=== PATIENT | male | born 1955 | race Caucasian/White ===

== ENCOUNTER 2019-05-04 10:48 | Outpatient (REF) | payer MEDICARE, SELFPAY ==
[2019-05-04 17:05] LABS: Hemoglobin A1C 6.6 % (3.8-5.6)
[2019-05-04 17:26] LABS: BUN 13 mg/dL (7-18); CREATININE 1.19 mg/dL (0.70-1.30); Calcium 8.7 mg/dL (8.5-10.1); Calculated LDL 66 mg/dL; Chloride 90 mmol/L (98-107); Cholesterol 152 mg/dL (<200); Glucose 164 mg/dL (74-106); HDL Cholesterol 79 mg/dL (40-60); Potassium 5.7 mmol/L (3.5-5.1); Sodium 125 mmol/L (136-145); Triglyceride 35 mg/dL (<150)
== END 2019-05-04 11:08 ==
LOC: NCHCN 10:48
PROVIDERS: Visit Provider Family Medicine
DX: E11.9 Type 2 diabetes mellitus without complications (principal); I10 Essential (primary) hypertension; Z13.6 Encounter for screening for cardiovascular disorders
CPT/HCPCS: 80048; 80061; 83036

== ENCOUNTER 2019-05-14 09:22 | Outpatient (REF) | payer MEDICARE, SELFPAY ==
[2019-05-14 21:20] LABS: Anion Gap 10.6 mmol/L (3-11); BUN 10 mg/dL (7-18); CO2 25.4 mmol/L (21.0-32.0); CREATININE 1.06 mg/dL (0.70-1.30); Calcium 8.6 mg/dL (8.5-10.1); Chloride 90 mmol/L (98-107); Glucose 140 mg/dL (74-106); Potassium 4.8 mmol/L (3.5-5.1); Sodium 126 mmol/L (136-145)
[2019-05-14 21:40] LABS: COMMENT (LAB VIEW ONLY) < 13.00 mg/dL
== END 2019-05-14 09:42 ==
LOC: NCHCN 09:22
PROVIDERS: Visit Provider Family Medicine
DX: E11.9 Type 2 diabetes mellitus without complications (principal); I10 Essential (primary) hypertension; Z13.220 Encounter for screening for lipoid disorders; E66.9 Obesity, unspecified
CPT/HCPCS: 80048; 82043; 82570

== ENCOUNTER 2019-05-25 12:12 | Outpatient (REF) | payer MEDICARE, SELFPAY ==
[2019-05-25 22:09] LABS: Anion Gap 10.5 mmol/L (3-11); CO2 25.5 mmol/L (21.0-32.0); Chloride 97 mmol/L (98-107); Potassium 4.3 mmol/L (3.5-5.1); Sodium 133 mmol/L (136-145)
== END 2019-05-25 12:32 ==
LOC: NCHCN 12:12
PROVIDERS: Visit Provider Family Medicine
DX: E87.1 Hypo-osmolality and hyponatremia (principal)
CPT/HCPCS: 80051

== ENCOUNTER 2019-07-05 11:10 | Outpatient (REF) | payer MEDICARE, SELFPAY ==
[2019-07-05 22:21] LABS: ALT 38 U/L (16-63); AST 27 U/L (15-37); Albumin 3.1 g/dL (3.4-5.0); Alkaline Phosphatase 88 U/L (46-116); BUN 7 mg/dL (7-18); Bilirubin, Total 0.6 mg/dL (0.2-1.0); CREATININE 0.72 mg/dL (0.70-1.30); Calcium 7.6 mg/dL (8.5-10.1); Chloride 90 mmol/L (98-107); Glucose 106 mg/dL (74-106); Magnesium 1.2 mg/dL (1.8-2.4); Sodium 132 mmol/L (136-145)
[2019-07-05 22:35] LABS: Potassium 2.9 mmol/L (3.5-5.1)
== END 2019-07-05 11:30 ==
LOC: NCHCN 11:10
PROVIDERS: Visit Provider Nurse Practitioner Family
DX: E83.51 Hypocalcemia (principal); E83.42 Hypomagnesemia
CPT/HCPCS: 80053; 83735

== ENCOUNTER 2019-07-12 16:41 | Outpatient (REF) | payer MEDICARE, SELFPAY ==
[2019-07-12 22:09] LABS: Anion Gap 10.7 mmol/L (3-11); BUN 10 mg/dL (7-18); CO2 29.3 mmol/L (21.0-32.0); CREATININE 0.73 mg/dL (0.70-1.30); Chloride 99 mmol/L (98-107); Glucose 116 mg/dL (74-106); Magnesium 1.2 mg/dL (1.8-2.4); Potassium 3.4 mmol/L (3.5-5.1); Sodium 139 mmol/L (136-145)
== END 2019-07-12 17:01 ==
LOC: NCHCN 16:41
PROVIDERS: Visit Provider Family Medicine
DX: E83.42 Hypomagnesemia (principal); E83.51 Hypocalcemia; I10 Essential (primary) hypertension
CPT/HCPCS: 80048; 83735

== ENCOUNTER 2020-03-01 14:57 | Outpatient (REF) | payer MEDICARE, SELFPAY ==
[2020-03-01 22:19] LABS: HCT 40.9 % (40.0-50.0); HGB 13.7 g/dL (13.5-17.5)
[2020-03-01 22:43] LABS: Anion Gap 7.8 mmol/L (3-11); BUN 17 mg/dL (7-18); CO2 25.2 mmol/L (21.0-32.0); Calcium 9.4 mg/dL (8.5-10.1); Chloride 98 mmol/L (98-107); Ferritin 65 ng/mL (26-388); Glucose 119 mg/dL (74-106); Magnesium 1.5 mg/dL (1.8-2.4); Potassium 5.6 mmol/L (3.5-5.1); Sodium 131 mmol/L (136-145)
[2020-03-01 23:00] LABS: COMMENT (LAB VIEW ONLY) 66.83 mg/dL; Microalb ug/mg Crea 9.6 ug/mg Cr
== END 2020-03-01 15:17 ==
LOC: NCHCN 14:57
PROVIDERS: Visit Provider Family Medicine
DX: E11.9 Type 2 diabetes mellitus without complications (principal); I10 Essential (primary) hypertension; E83.42 Hypomagnesemia; E78.5 Hyperlipidemia, unspecified; D64.9 Anemia, unspecified
CPT/HCPCS: 80048; 82043; 82570; 82728; 83735; 85014; 85018

== ENCOUNTER 2020-03-15 19:43 | Outpatient (REF) | payer MEDICARE, SELFPAY ==
[2020-03-15 22:14] LABS: Anion Gap 8.9 mmol/L (3-11); BUN 14 mg/dL (7-18); CO2 26.1 mmol/L (21.0-32.0); CREATININE 1.09 mg/dL (0.70-1.30); Calcium 8.3 mg/dL (8.5-10.1); Chloride 96 mmol/L (98-107); Glucose 194 mg/dL (74-106); Potassium 4.6 mmol/L (3.5-5.1); Sodium 131 mmol/L (136-145)
== END 2020-03-15 20:03 ==
LOC: NCHCN 19:43
PROVIDERS: Visit Provider Family Medicine
DX: I10 Essential (primary) hypertension (principal)
CPT/HCPCS: 80048

== ENCOUNTER 2020-04-19 11:04 | Outpatient (REF) | payer MEDICARE, SELFPAY ==
[2020-04-19 22:21] LABS: Chloride 93 mmol/L (98-107); Potassium 4.6 mmol/L (3.5-5.1); Sodium 128 mmol/L (136-145)
== END 2020-04-19 11:24 ==
LOC: NCHCN 11:04
PROVIDERS: Visit Provider Family Medicine
DX: I10 Essential (primary) hypertension (principal); E87.1 Hypo-osmolality and hyponatremia; E83.51 Hypocalcemia; E83.42 Hypomagnesemia
CPT/HCPCS: 80051

== ENCOUNTER 2020-04-26 18:28 | Outpatient (REF) | payer MEDICARE, SELFPAY ==
[2020-04-26 21:56] LABS: Abs Immature Grans 0.09 10^3/uL (0.0-0.06); Absolute Basophil Count 0.04 10^3/uL (0.0-0.2); Absolute Eosinophil Count 0.13 10^3/uL (0.0-0.7); Absolute Lymphocyte Count 1.74 10^3/uL (1.2-3.4); Absolute Monocyte Count 0.65 10^3/uL (0.1-0.8); Absolute Neutrophil Count 5.69 10^3/uL (1.2-6.7); Basophils % 0.5; Eosinophils % 1.6; HCT 39.2 % (40.0-50.0); HGB 13.1 g/dL (13.5-17.5); Immature Grans % 1.1; Lymphocytes % 20.9; MCH 30.9 pg (27.0-33.0); MCHC 33.4 % (32.0-36.0); MCV 92.5 fL (80-95); MPV 8.9 fL (8.0-11.0); Monocytes % 7.8; Neutrophils % 68.1; Nucleated RBC 0 %; Platelet Count 203 10^3/uL (130-400); RBC 4.24 10^6/uL (4.36-5.78); RDW 11.8 % (11.8-14.1); RDW-SD 39.8 fL; WBC 8.34 10^3/uL (4.4-10.8)
[2020-04-28 14:58] LABS: Albumin 56.5 % (55.8-66.1); Total Protein 6.8 g/dL (6.3-8.2)
== END 2020-04-26 18:48 ==
LOC: NCHCN 18:28
PROVIDERS: Visit Provider Family Medicine
DX: E87.1 Hypo-osmolality and hyponatremia (principal)
CPT/HCPCS: 84165; 85025

== ENCOUNTER 2020-04-27 22:11 | Outpatient (REF) | payer MEDICARE, SELFPAY ==
[2020-04-28 18:08] LABS: Osmolality, Urine 502 mOsm/kg (150-1,150)
== END 2020-04-27 22:31 ==
LOC: NCHCN 22:11
PROVIDERS: Visit Provider Family Medicine
DX: E87.1 Hypo-osmolality and hyponatremia (principal)
CPT/HCPCS: 83935

== ENCOUNTER 2020-08-29 21:26 | Outpatient (REF) | payer MEDICARE, SELFPAY ==
[2020-08-29 22:06] LABS: TSH 1.21 uIU/mL (0.36-3.74); Vitamin B12 309 pg/mL (193-986)
[2020-08-31 09:48] LABS: Lyme Ab w Rflx to Lyme Confirm Negative (Negative)
[2020-08-31 12:52] LABS: Albumin 59.4 % (55.8-66.1); Total Protein 6.9 g/dL (6.3-8.2)
== END 2020-08-29 21:27 | disposition home or self-care (01) ==
LOC: NCHCN 21:26
PROVIDERS: Visit Provider Family Medicine
DX: I10 Essential (primary) hypertension (principal); G62.9 Polyneuropathy, unspecified
CPT/HCPCS: 82607; 84165; 84443; 86618

== ENCOUNTER 2021-02-20 15:09 | Outpatient (REF) | payer MEDICARE, SELFPAY ==
[2021-02-21 09:50] LABS: IgA 348 mg/dL (85-499); IgG 1069 mg/dL (610-1,616); IgM 149 mg/dL (35-242)
[2021-02-21 11:05] LABS: IgE 1469 IU/mL (<158)
== END 2021-02-20 15:10 | disposition home or self-care (01) ==
LOC: LBN 15:09
PROVIDERS: Visit Provider Student in an Organized Health Care Education/Training Program
DX: J47.9 Bronchiectasis, uncomplicated (principal)
CPT/HCPCS: 82784; 82785; 82787

== ENCOUNTER 2021-02-23 00:32 | Outpatient (CLI) | payer MEDICARE, SELFPAY ==
--- NOTE | 2021-02-23 06:45 | DI.RAD_ITS ---
Exam(s) RF BARIUM SWALLOW EXAM: RF BARIUM SWALLOW CLINICAL HISTORY: Concern for aspiration,parkinsons,recurrent pneumonia,j18.9 TECHNIQUE: 2D and realtime digital imaging was performed. CONTRAST MATERIAL: Thick and thin barium and barium tablet were administered. COMPARISON: CT CT CHEST LOW DOSE CA SCREENING from 09/07/2020 FINDINGS: The PA and lateral views of the chest show mildly enlarged heart. There are increased densities seen in the right middle lobe suspicious for pneumonia. This was not evident on the previous CT. The le ft lung appears clear. No effusions are seen. The lateral information systems operator view of the neck shows degenerative changes.. Esophagus: The patient swallowed barium without difficulty. Noevidence for mucosal erosions. Nofold thickening. No mass is visible. Nostricture. Motility: There is slow oral transit.. Tertiary contractions were noted. There is no hiatal hernia. Mildgastroesophageal reflux was observed during the exam. No aspiration was observed during the exam. IMPRESSION: Right middle lobe opacity suspicious for pneumonia. Slow oral transit. Prominent tertiary contractions. No aspiration. RADIATION DOSE DELIVERED: summer Rivera=30.6 mGy
== END 2021-02-23 00:52 ==
PROVIDERS: Visit Provider Student in an Organized Health Care Education/Training Program
DX: G20 Parkinson's disease (principal); J18.9 Pneumonia, unspecified organism; R91.8 Other nonspecific abnormal finding of lung field
CPT/HCPCS: 74221

== ENCOUNTER 2021-02-26 16:16 | Outpatient (REF) | payer MEDICARE, SELFPAY ==
[2021-02-28 16:27] LABS: Aspergillus Fumigatus IgE <0.35 kU/L; Aspergillus Niger, IgE <0.35 kU/L
== END 2021-02-26 16:17 | disposition home or self-care (01) ==
LOC: LBN 16:16
PROVIDERS: Visit Provider Student in an Organized Health Care Education/Training Program
DX: J45.998 Other asthma (principal)
CPT/HCPCS: 86003

== ENCOUNTER 2021-05-31 00:57 | Outpatient (CLI) | payer MEDICARE, SELFPAY ==
--- NOTE | 2021-05-31 | DI.NM_ITS ---
APPROVED REPORT Exam: Pharmacologic Patient Location: Out-Patient Room/Bed: Stress Nurse: Joleen Davis RN Ordering Provider:JERSON MURPHY MD Contact Number: [phone] BMI: 30.79 Baseline Rhythm: Sinus Rhythm Comment: baseline 1mm ST depressions noted in leads II, III, aVF, V5, and V6 Indications: CHEST PAIN Medical History Medical History: Parkinson's disease, Recurrent pneumonia, COPD, HTN, PE, Systolic murmur, Asthma, DM , Hx of tobacco use Cardiac Medications: Spironolactone, Potassium chloride, Omeprazole, Metformin, Magnesium oxide, Tonja nopril, Ipratropium, Guaifenesin, Clonidine, Aspirin, Albuterol sulfate Allergies: No known drug allergies Cardiac Risk Factors: HTN, Diabetes (non-insulin), Smoking (former) , COPD, Asthma Previous Cardiac Procedures: None Pretest Chest Pain Characteristics: 1/10 left sided chest pain described as sharp; variable throughou t the day, experienced on a daily basis. Chest pain gone by the time exercise started. Exercise History: Sedentary Physical Disabilities: None identified. Lung Sounds: LCTA upper airways, diminished left lower lobe, expiratory coarse wheeze right lower lob e. Heart Sounds: Regular, Murmur Stress Test Details Test: Exercise stress converted to pharmacologic stress due to failure to obtain a diagnostic stress test. Reason for pharmacologic stress test: changed from exercise stress test due to inability to reach t arget heart rate. Nuclear Acquisition: Rest Tc-99m/Stress Tc-99m 1 day Rest Isotope: Tc-99m Sestamibi. Dose: 10.8 Date: 05/31/2021 Injection Time: 1045 Stress Isotope: Tc-99m Sestamibi. Dose: 32.5 Date: 05/31/2021 Injection Time: 1240 HR Resting HR Supine: 68 bpm Max Heart Rate (APMHR): 152.407040 bpm Resting HR Standin bpm Target HR (85% APMHR): 129.671596 bpm Max HR Achieved: 109 bpm % of APMHR: 71.71 Recovery HR: 79 bpm HR response to stress: Normal HR response to stress Comment: Patient unable to achieve target HR. BP Resting BP Supine: 122/66 mmHg Resting BP Standin/62 mmHg Max BP: 158/72 mmHg Recovery BP: 122/58 mmHg BP response to stress: Normal blood pressure response to stress. ECG Resting ECG: Sinus Rhythm Ectopy: none Comment: baseline 1mm ST depressions noted in leads II, III, aVF, V5, and V6 Stress ECG: Sinus Tachycardia ST Change: Downsloping ST depression, , No significant ST segment changes noted, Horizontal ST depres ankit, No significant ST segment changes noted, Lead(s): inferolateral leads Maximum ST Deviation: 3 mm Arrhythmia: PACs Recovery ECG: Sinus Rhythm Recovery ST Change: Downsloping ST depression Recovery ST Deviation: 3 mm Recovery Arrhythmia: None Comment: ST depressions returning to baseline by 15 min post lexiscan injection. Clinical Reason for Termination: Dyspnea Stress Symptoms: Dyspnea Exercise duration: 4 min22 sec Rate Pressure Product: [id number] Stress ECG Conclusion 1. The resting electrocardiogram showed left ventricular hypertrophy with repolarization abnormalitie s 2. The patient underwent low-level exercise, coupled with pharmacologic stress 3. Peak heart rate achieved was 71% of predicted for age 4. Electrocardiographic portion of the test was nondiagnostic due to inadequate heart rate 5. See MPI report for additional information Stress Test Summary STAGE Time (mins) Speed (mph) Grade (%) HR BP SYMPTOMS METS Supine 68 122/66 Standing 73 130/62 1 3 1.7 10 104 138/70 SpO2 98% 4.6 2 6 2.5 12 severe SOB 7 1 min post Lexiscan injection 93 158/72 severe SOB 3 min post Lexiscan injection 88 138/62 6 min post Lexiscan injection 84 130/60 symptoms resolved 9 min post Lexiscan injection 84 122/58 12 min post Lexiscan injection 82 15 min post Lexiscan injection 79 Patient attempted treadmill stress test. Unable to keep up with pace of treadmill, so in stage 2 of b ruce protocol speed remained at 1.7 mph w/ 15% grade. Patient unable to exercise long enough for HR t o achieve target HR despite modification. MPI Conclusion Normal myocardial perfusion, without ischemia or evidence of prior infarction EF 65%, normal wall motion Radiologist Interpretation Radiologist agrees with Senior Loan Officer's Interpretation. Radiologist Interpretation by: Ellie Gonzalez MD Interpretation Date/Time: 06/01/2021 15:50:01
[2021-05-31] MEDS: Regadenoson 0.4 MG/5 ML SYR IVP (13:07)
== END 2021-05-31 01:17 ==
PROVIDERS: Visit Provider Internal Medicine Interventional Cardiology
DX: R07.9 Chest pain, unspecified (principal); I10 Essential (primary) hypertension; E11.9 Type 2 diabetes mellitus without complications; Z87.891 Personal history of nicotine dependence; J44.9 Chronic obstructive pulmonary disease, unspecified; J45.909 Unspecified asthma, uncomplicated; I51.7 Cardiomegaly; R94.39 Abnormal result of other cardiovascular function study
CPT/HCPCS: 78452; 93016; 93018; 93017; J2785

== ENCOUNTER 2021-10-17 16:21 | Outpatient (REF) | payer MEDICARE, SELFPAY ==
[2021-10-17 17:49] LABS: COMMENT (LAB VIEW ONLY) < 13.00 mg/dL
== END 2021-10-17 16:22 | disposition home or self-care (01) ==
LOC: NCHCN 16:21
PROVIDERS: PCP Family Medicine; Visit Provider Family Medicine
DX: E11.65 Type 2 diabetes mellitus with hyperglycemia (principal)
CPT/HCPCS: 82043; 82570

== ENCOUNTER → 2022-06-05 14:25 | Outpatient (BNVA) | payer MEDICARE, SELFPAY | PROVIDERS: PCP Family Medicine; Referring Provider Family Medicine; Visit Provider Psychiatry & Neurology Neurology | DX: I69.312 Visuospatial deficit and spatial neglect following cerebral infarction (principal); G20 Parkinson's disease | CPT/HCPCS: 99205 ==

== ENCOUNTER → 2022-08-14 12:47 | Outpatient (BNVA) | payer MEDICARE, SELFPAY | PROVIDERS: PCP Family Medicine; Referring Provider Family Medicine; Visit Provider Psychiatry & Neurology Neurology | DX: G20 Parkinson's disease (principal); I69.312 Visuospatial deficit and spatial neglect following cerebral infarction; Z79.02 Long term (current) use of antithrombotics/antiplatelets; Z79.01 Long term (current) use of anticoagulants; I48.91 Unspecified atrial fibrillation; I10 Essential (primary) hypertension | CPT/HCPCS: 99214 ==

== ENCOUNTER 2022-08-14 16:45 | Outpatient (REF) | payer MEDICARE, SELFPAY | END 2022-08-14 16:46 | disposition home or self-care (01) | LOC: LBN 16:45 | PROVIDERS: PCP Family Medicine; Visit Provider Student in an Organized Health Care Education/Training Program | DX: J47.9 Bronchiectasis, uncomplicated (principal) | CPT/HCPCS: 87070; 87205 ==

== ENCOUNTER 2022-08-30 21:02 | Outpatient (REF) | payer MEDICARE, SELFPAY ==
[2022-08-30 21:06] LABS: Anion Gap 8.5 mmol/L (3-11); BUN 16 mg/dL (7-18); CO2 28.5 mmol/L (21.0-32.0); CREATININE 0.9 mg/dL (0.70-1.30); Calcium 9.2 mg/dL (8.5-10.1); Chloride 101 mmol/L (98-107); Estimated GFR 92.45 (mL/min/1.73m2); Glucose 166 mg/dL (74-106); Magnesium 1.5 mg/dL (1.8-2.4); Potassium 4.6 mmol/L (3.5-5.1); Sodium 138 mmol/L (136-145)
== END 2022-08-30 21:03 | disposition home or self-care (01) ==
LOC: NCHCN 21:02
PROVIDERS: PCP Family Medicine; Visit Provider Family Medicine
DX: I10 Essential (primary) hypertension (principal); E83.42 Hypomagnesemia
CPT/HCPCS: 80048; 83735

== ENCOUNTER 2022-11-04 12:28 | Outpatient (REF) | payer MEDICARE, SELFPAY ==
[2022-11-04 21:54] LABS: Magnesium 1.5 mg/dL (1.8-2.4)
== END 2022-11-04 12:29 | disposition home or self-care (01) ==
LOC: NCHCN 12:28
PROVIDERS: PCP Family Medicine; Visit Provider Family Medicine
DX: E83.42 Hypomagnesemia (principal)
CPT/HCPCS: 83735

== ENCOUNTER → 2023-02-12 11:20 | Outpatient (BNVA) | payer MEDICARE, SELFPAY | PROVIDERS: PCP Family Medicine; Visit Provider Psychiatry & Neurology Neurology | DX: I69.398 Other sequelae of cerebral infarction (principal); H53.47 Heteronymous bilateral field defects; Z79.82 Long term (current) use of aspirin; G56.02 Carpal tunnel syndrome, left upper limb; I10 Essential (primary) hypertension; G20.A1 Parkinson's disease without dyskinesia, without mention of fluctuations | CPT/HCPCS: 99214 ==

== ENCOUNTER 2023-03-21 16:17 | Outpatient (REF) | payer MEDICARE, SELFPAY ==
[2023-03-21 21:16] LABS: HCT 38.6 % (40.0-50.0); HGB 13.5 g/dL (13.5-17.5); MCH 30.9 pg (27.0-33.0); MCV 88 fL (80-95); MPV 9.8 fL (8.0-11.0); Platelet Count 281 10^3/uL (130-400); RBC 4.37 10^6/uL (4.36-5.78); RDW 12.2 % (11.8-14.1); RDW-SD 39.5 fL; WBC 9.01 10^3/uL (4.4-10.8)
[2023-03-21 21:42] LABS: COMMENT (LAB VIEW ONLY) 174.69 mg/dL; Microalb ug/mg Crea 35.8 ug/mg Cr
== END 2023-03-21 16:18 | disposition home or self-care (01) ==
LOC: NCHCN 16:17
PROVIDERS: PCP Family Medicine; Visit Provider Family Medicine
DX: R04.0 Epistaxis (principal); I10 Essential (primary) hypertension
CPT/HCPCS: 85027; 82043; 82570

== ENCOUNTER → 2023-06-02 12:29 | Outpatient (BNVA) | payer MEDICARE, SELFPAY | PROVIDERS: PCP Family Medicine; Referring Provider Family Medicine; Visit Provider Physician Assistant Surgical | DX: J44.9 Chronic obstructive pulmonary disease, unspecified (principal); R91.8 Other nonspecific abnormal finding of lung field; J47.9 Bronchiectasis, uncomplicated; G20.C Parkinsonism, unspecified; Z87.01 Personal history of pneumonia (recurrent) | CPT/HCPCS: 99214 ==

== ENCOUNTER → 2023-08-13 11:12 | Outpatient (BNVA) | payer MEDICARE, SELFPAY | PROVIDERS: PCP Family Medicine; Visit Provider Psychiatry & Neurology Neurology | DX: G20.C Parkinsonism, unspecified (principal); I63.9 Cerebral infarction, unspecified; G56.02 Carpal tunnel syndrome, left upper limb | CPT/HCPCS: 99214 ==

== ENCOUNTER → 2023-11-19 10:12 | Outpatient (BNVA) | payer MEDICARE, SELFPAY | PROVIDERS: PCP Family Medicine; Referring Provider Family Medicine; Visit Provider Internal Medicine Critical Care Medicine | DX: J47.9 Bronchiectasis, uncomplicated (principal); J44.9 Chronic obstructive pulmonary disease, unspecified; R91.8 Other nonspecific abnormal finding of lung field; R07.89 Other chest pain | CPT/HCPCS: 99214 ==

== ENCOUNTER → 2024-02-11 10:11 | Outpatient (BNVA) | payer MEDICARE, SELFPAY | PROVIDERS: PCP Family Medicine; Referring Provider Family Medicine; Visit Provider Psychiatry & Neurology Neurology | DX: G20.C Parkinsonism, unspecified (principal); R47.1 Dysarthria and anarthria; R49.8 Other voice and resonance disorders; G56.02 Carpal tunnel syndrome, left upper limb | CPT/HCPCS: 99213 ==

== ENCOUNTER 2024-05-17 15:51 | Outpatient (CLI) | payer MEDICARE, SELFPAY ==
--- NOTE | 2024-05-17 10:15 | DI.RAD_ITS ---
Exam(s) XR HIP RT COMPLETE AP PELVIS EXAM: XR HIP RT COMPLETE AP PELVIS CLINICAL HISTORY: eval R hip pain. TECHNIQUE: 2D digital imaging was performed of the right hip. Two images were obtained. AP pelvis a nd lateral right hip views were obtained. COMPARISON: CT CT ABD/PELVIS W/ CONTR NO PO from 02/23/2024 FINDINGS: BONES: No acute fracture is present. No bony destructive lesion is seen. JOINTS: No dislocation present. The patient has a left total hip arthroplasty which is incompletely i chelly. The right hip is well maintained apart from mild joint space narrowing. The visualized porti ons of the sacroiliac joints and symphysis pubis are unremarkable. SOFT TISSUE: Extensive atherosclerotic calcification is present. IMPRESSION: Mild joint space narrowing of the right hip. No acute abnormality. DATA REPOSITORY: RADIATION DOSE DELIVERED:
== END 2024-05-17 15:52 | disposition home or self-care (01) ==
LOC: DIORS 15:51
PROVIDERS: PCP Family Medicine; Referring Provider Family Medicine; Visit Provider Student in an Organized Health Care Education/Training Program
DX: M16.11 Unilateral primary osteoarthritis, right hip (principal)
CPT/HCPCS: 20611; 99215; J1010; 73502

== ENCOUNTER → 2024-05-19 10:55 | Outpatient (BNVA) | payer MEDICARE, SELFPAY | PROVIDERS: PCP Family Medicine; Referring Provider Family Medicine; Visit Provider Physician Assistant Surgical | DX: G20.C Parkinsonism, unspecified (principal); J44.9 Chronic obstructive pulmonary disease, unspecified; R91.8 Other nonspecific abnormal finding of lung field; J47.9 Bronchiectasis, uncomplicated | CPT/HCPCS: 99214 ==

== ENCOUNTER 2024-09-03 12:01 | Outpatient (REF) | payer MEDICARE, SELFPAY ==
[2024-09-03 15:13] LABS: COMMENT (LAB VIEW ONLY) 99.83 mg/dL; Microalb ug/mg Crea 62.8 ug/mg Cr
== END 2024-09-03 12:02 | disposition home or self-care (01) ==
LOC: NCHCN 12:01
PROVIDERS: Visit Provider Family Medicine
DX: E11.29 Type 2 diabetes mellitus with other diabetic kidney complication (principal)
CPT/HCPCS: 82043; 82570

== ENCOUNTER → 2024-09-09 10:08 | Outpatient (BNVA) | payer MEDICARE, SELFPAY | PROVIDERS: Referring Provider Family Medicine; Visit Provider Physician Assistant Surgical | DX: G20.C Parkinsonism, unspecified (principal); J44.9 Chronic obstructive pulmonary disease, unspecified; J18.9 Pneumonia, unspecified organism; R91.8 Other nonspecific abnormal finding of lung field; J47.9 Bronchiectasis, uncomplicated | CPT/HCPCS: 36415; 99214 ==

== ENCOUNTER 2024-09-09 12:20 | Outpatient (REF) | payer MEDICARE, SELFPAY ==
[2024-09-09 12:26] LABS: Abs Immature Grans 0.07 10^3/uL (0.0-0.06); Absolute Basophil Count 0.06 10^3/uL (0.0-0.2); Absolute Eosinophil Count 0.35 10^3/uL (0.0-0.7); Absolute Lymphocyte Count 1.75 10^3/uL (1.2-3.4); Absolute Monocyte Count 0.65 10^3/uL (0.1-0.8); Basophils % 0.8 %; Eosinophils % 4.4 %; HCT 45.3 % (40.0-50.0); HGB 15.2 g/dL (13.5-17.5); Immature Grans % 0.9 %; Lymphocytes % 21.9 %; MCH 30.7 pg (27.0-33.0); MCHC 33.6 % (32.0-36.0); MCV 92 fL (80-95); MPV 9.2 fL (8.0-11.0); Monocytes % 8.1 %; Neutrophils % 63.9 %; Platelet Count 252 10^3/uL (130-400); RBC 4.95 10^6/uL (4.36-5.78); RDW 12.3 % (11.8-14.1); RDW-SD 40.4 fL; WBC 7.98 10^3/uL (4.4-10.8)
[2024-09-10 11:20] LABS: IgE 1204 IU/mL (<158)
== END 2024-09-09 12:21 | disposition home or self-care (01) ==
LOC: LBN 12:20
PROVIDERS: Visit Provider Physician Assistant Surgical
DX: J44.9 Chronic obstructive pulmonary disease, unspecified (principal); J18.9 Pneumonia, unspecified organism; R91.8 Other nonspecific abnormal finding of lung field; J47.9 Bronchiectasis, uncomplicated
CPT/HCPCS: 82785; 85025

== ENCOUNTER → 2024-10-07 14:20 | Outpatient (BNVA) | payer MEDICARE, SELFPAY | PROVIDERS: Visit Provider Psychiatry & Neurology Neurology | DX: G20.C Parkinsonism, unspecified (principal); I63.9 Cerebral infarction, unspecified; G56.02 Carpal tunnel syndrome, left upper limb; R47.1 Dysarthria and anarthria; R49.8 Other voice and resonance disorders; I10 Essential (primary) hypertension; E11.9 Type 2 diabetes mellitus without complications; J44.9 Chronic obstructive pulmonary disease, unspecified | CPT/HCPCS: 99214 ==

== ENCOUNTER → 2024-10-18 10:14 | Outpatient (BNVA) | payer MEDICARE, SELFPAY | PROVIDERS: Visit Provider Physician Assistant Surgical | DX: J44.9 Chronic obstructive pulmonary disease, unspecified (principal); J18.9 Pneumonia, unspecified organism; R91.8 Other nonspecific abnormal finding of lung field; J47.9 Bronchiectasis, uncomplicated; G20.C Parkinsonism, unspecified | CPT/HCPCS: 99214 ==

== ENCOUNTER → 2024-11-09 10:47 | Outpatient (BNVA) | payer MEDICARE, SELFPAY | PROVIDERS: PCP Family Medicine; Visit Provider Psychiatry & Neurology Neurology | DX: G56.02 Carpal tunnel syndrome, left upper limb (principal); G56.01 Carpal tunnel syndrome, right upper limb; G56.22 Lesion of ulnar nerve, left upper limb; G56.21 Lesion of ulnar nerve, right upper limb; G20.C Parkinsonism, unspecified; E11.59 Type 2 diabetes mellitus with other circulatory complications; I10 Essential (primary) hypertension; J44.9 Chronic obstructive pulmonary disease, unspecified | CPT/HCPCS: 99214; 95910 ==

== ENCOUNTER 2024-12-10 19:39 | Outpatient (REF) | payer MEDICARE, SELFPAY ==
[2024-12-10 21:31] LABS: NT-proBNP 40 pg/mL (<300)
== END 2024-12-10 19:40 | disposition home or self-care (01) ==
LOC: NCHCN 19:39
PROVIDERS: PCP Family Medicine; Visit Provider Family Medicine
DX: I50.32 Chronic diastolic (congestive) heart failure (principal)
CPT/HCPCS: 83880

== ENCOUNTER 2024-12-20 11:47 | Outpatient (CLI) | payer MEDICARE, SELFPAY ==
--- NOTE | 2024-12-20 10:30 | DI.RAD_ITS ---
Exam(s) XR PELVIS AP EXAM: XR PELVIS AP CLINICAL HISTORY: OA R HIP. TECHNIQUE: 2D digital imaging was performed.One images were obtained. COMPARISON: CR XR HIP RT COMPLETE AP PELVIS from 05/17/2024 FINDINGS: BONES: No acute fracture is present. No bony destructive lesion is seen. JOINTS: No dislocation present. The visualized portions of the left hip replacement are stable. There is moderate joint space narrowing of the right hip. The joint is otherwise well maintained. The sacroiliac joints and symphysis pubis are unremarkable. SOFT TISSUE: Atherosclerotic calcification is present. IMPRESSION: Moderate joint space narrowing of the right hip. DATA REPOSITORY: RADIATION DOSE DELIVERED:
== END 2024-12-20 11:48 | disposition home or self-care (01) ==
LOC: DIORS 11:48
PROVIDERS: PCP Family Medicine; Referring Provider Family Medicine; Visit Provider Physician Assistant
DX: Z01.818 Encounter for other preprocedural examination (principal); M16.11 Unilateral primary osteoarthritis, right hip
CPT/HCPCS: 99024; 72170

== ENCOUNTER 2024-12-20 17:01 | Outpatient (REF) | payer MEDICARE, SELFPAY ==
[2024-12-20 13:12] LABS: HCT 38.5 % (40.0-50.0); HGB 13.2 g/dL (13.5-17.5); MCH 30.5 pg (27.0-33.0); MCHC 34.3 % (32.0-36.0); MCV 89 fL (80-95); MPV 9.4 fL (8.0-11.0); Platelet Count 265 10^3/uL (130-400); RBC 4.33 10^6/uL (4.36-5.78); RDW 12.9 % (11.8-14.1); RDW-SD 41.9 fL; WBC 10.33 10^3/uL (4.4-10.8)
[2024-12-20 13:17] LABS: Anion Gap 7.1 mmol/L (3-11); BUN 16 mg/dL (7-18); CO2 28.9 mmol/L (21.0-32.0); Calcium 9.5 mg/dL (8.5-10.1); Chloride 100 mmol/L (98-107); Estimated GFR 91.31 (mL/min/1.73m2); Glucose 207 mg/dL (74-106); Potassium 4.6 mmol/L (3.5-5.1); Sodium 136 mmol/L (136-145)
[2024-12-21 10:37] LABS: Hemoglobin A1C 6.8 % (<5.7)
== END 2024-12-20 17:02 | disposition home or self-care (01) ==
LOC: LBN 17:01
PROVIDERS: PCP Family Medicine; Visit Provider Student in an Organized Health Care Education/Training Program
DX: Z01.818 Encounter for other preprocedural examination (principal); M16.11 Unilateral primary osteoarthritis, right hip; E11.9 Type 2 diabetes mellitus without complications
CPT/HCPCS: 80048; 85027; 83036

== ENCOUNTER → 2024-12-22 10:25 | Outpatient (BNVA) | payer MEDICARE, SELFPAY | PROVIDERS: PCP Family Medicine; Referring Provider Family Medicine; Visit Provider Internal Medicine Pulmonary Disease | DX: J45.50 Severe persistent asthma, uncomplicated (principal); J47.9 Bronchiectasis, uncomplicated; R91.8 Other nonspecific abnormal finding of lung field; Z87.891 Personal history of nicotine dependence | CPT/HCPCS: 99215 ==

== ENCOUNTER 2025-01-03 03:20 | Outpatient (CLI) | payer MEDICARE, SELFPAY ==
--- NOTE | 2025-01-03 08:50 | DI.US_ITS ---
APPROVED REPORT EXAM: Comprehensive 2D, Doppler, and color-flow Echocardiogram Patient Location: Out-Patient Technical Instructor Course Developer: Johnathon Stewart RDCS (AE) Indications: Aortic stenosis, CHF Other Information Study Quality: Adequate. Technically limited study due to body habitus. Conclusion Normal left ventricular wall thickness and chamber size. Ejection fraction is 60%. Wall motion is normal Normal right ventricular size and function Both atria are normal in size The aortic valve is mildly sclerotic and probably trileaflet. There is very mild aortic stenosis. Calculated aortic valve area is 1.7 cm??, mean gradient is 13 mmHg. There is no significant aortic regurgitation Mitral annular calcification, trace mitral regurgitation Estimated right ventricular systolic pressure is 34 mmHg Wall motion Left Ventricle The left ventricle is normal size. The left ventricular systolic function is normal. The left ventricular ejection fraction is within the normal range. There is normal left ventricular wall thickness. There is normal LV segmental wall motion. There is no ventricular septal defect visualized. LVEF is 60%. Right Ventricle The right ventricle is normal size. The right ventricular systolic function is normal. Atria The left atrium size is normal. The right atrium size is normal. The interatrial septum is intact with no evidence for an atrial septal defect. Aortic Valve The aortic valve is mildly sclerotic. Aortic valve is probably trileaflet. Very mild aortic stenosis. Peak aortic valve gradient is 22.98 mmHg. Highest mean aortic valve gradient is 13.07 mmHg. Calculated MAIA by the continuity equation is 1.7 cm2. No aortic regurgitation is present. Mitral Valve Mitral annular calcification. No evidence of mitral valve stenosis. Trace mitral regurgitation. Tricuspid Valve The tricuspid valve is normal in structure. There is no tricuspid valve stenosis. Trace tricuspid regurgitation. The RVSP is 33.9 mmHg. Pulmonic Valve The pulmonary valve is normal in structure. There is no pulmonic valvular stenosis. There is no pulmonic valvular regurgitation. Great Vessels The aortic root is normal in size. The ascending aorta is normal in size. IVC is normal in size and collapses >50% with inspiration. Pericardium There is no pericardial effusion. 2D Dimensions IVSD d PLAX 1.09 cm M: 0.6-1.2 Ao Root d 2.79 cm M: 3.1 - 3.7 LVPW d PLAX 1.15 cm M: 0.6 - 1.2 Ao Asc Diam d 3.04 cm M: 2.6 - 3.4 LVID d PLAX 4.66 cm M: 4.2 - 5.8 LVDs 3.18 cm M: 2.5 - 4.0 LV EF Teichholz 59.6 % FS 31.64 % LV EDV (Teich) 100.2 mL LV ESV (Teich) 40.5 mL Stroke Vol Index (Teich) 34.55 M-Mode TAPSE 2.38 cm (M/F) >1.7 Auto EF LV EDV A4C 109.1 mL LV EDV A2C 103.5 mL LV EDV BP 105.4 mL LV ESV A4C 43.7 mL LV ESV A2C 41.8 mL LV ESV BP 42.3 mL LVEF(%) A4C 60.0 % LVEF(%) A2C 59.6 % LVEF(%) BP 59.9 % LV SV A4C 65.4 ml LV SV A2C 61.7 ml LV SV BP 63.1 ml LV CO A4C 4.3 L/min LV CO A2C 3.9 L/min LV CO BP 4.1 L/min HR A4C 66.15 BPM HR A2C 63.70 BPM LV EDV Index (BP) LA Volume LA Length A4C 5.6 cm LA Length A2C 5.0 cm LA Area A4C s 12.86 cm2 LA Area A2C s 13.66 cm2 LA Vol A4C A-L 25.05 mL LA Vol A2C A-L 31.42 mL LA Vol Biplane A-L 29.6 mL LA Vol/BSA A4C A-L LA Vol/BSA A2C A-L LA Vol/BSA BP A-L 17.1 mL/m2 LA Vol A4C MOD 23.6 mL LA Vol A2C MOD 30.3 mL LA Vol BP MOD 28.0 mL RA Volume RA Area A4C 9.0 cm2 RA ESV A4C (A-L) 16.0mL RA Vol/BSA A4C A-L RA Length A4C 4.3 cm RA ESV A4C (MOD) 16.0mL LV Diastology MV E' medial 0.082 (>0.07 m/s) MV E Vmax 1.02 (0.4-1.3 m/s) MV E/E' MED 12.45 (<14) MV A Vmax 1.30 (0.4-1.3 m/s) MV E' lateral 0.095 (>0.1 m/s) E/A Ratio 0.8 MV E/E' LAT 10.80 (<14) MV E' Average 0.088 m/s MV E/E'(average) 11.57 Aortic Valve AoV Vmax 2.40 m/s LVOT Vmax 1.22 m/s AoV Peak Grad 23.0 mmHg LVOT Peak Grad 5.9 mmHg AoV Area (Vmax) 1.58 cm2 LVOT VTI 0.302 m AoV VTI 0.554 m LVOT Mean Grad 3.1 mmHg AoV Mean Jonas. 1.71 m/s LVOT SV 94.12 mL AoV Mean Grad 13.1 mmHg LVOT Diam s 1.95 cm AoV Area (VTI) 1.70 cm2 AV Regurg Peak Gr. 22.98 mmHg Velocity Ratio 0.51 Mitral Valve MV DT 252 (160-240 msec) Pulmonary Valve PV Vmax 1.31 (0.5-1.5 m/s) RVOT Vmax 0.66 m/s PV Peak Grad 6.9 mmHg RVOT Peak Gr. 1.8 mmHg PV Mean Jonas 0.94 m/s RVOT VTI 0.143 m PV Mean Grad 4.0 mmHg RVOT Mean Gr. 1.0 mmHg Tricuspid Valve RA Pressure 3.00 mmHg TR Vmax 2.78 m/s TR Peak Grad 30.8 mmHg RVSP (TR) 33.9 mmHg
== END 2025-01-03 03:40 ==
LOC: DI 03:20
PROVIDERS: PCP Family Medicine; Visit Provider Internal Medicine Cardiovascular Disease
DX: I35.0 Nonrheumatic aortic (valve) stenosis (principal); I50.9 Heart failure, unspecified
CPT/HCPCS: 93306

== ENCOUNTER → 2025-02-09 10:14 | Outpatient (BNVA) | payer MEDICARE, SELFPAY | PROVIDERS: PCP Family Medicine; Referring Provider Family Medicine; Visit Provider Psychiatry & Neurology Neurology | DX: G20.C Parkinsonism, unspecified (principal); G56.03 Carpal tunnel syndrome, bilateral upper limbs; G56.23 Lesion of ulnar nerve, bilateral upper limbs; I63.9 Cerebral infarction, unspecified; R47.1 Dysarthria and anarthria; R42 Dizziness and giddiness; E11.59 Type 2 diabetes mellitus with other circulatory complications; I10 Essential (primary) hypertension; J44.9 Chronic obstructive pulmonary disease, unspecified; R26.89 Other abnormalities of gait and mobility | CPT/HCPCS: 99214 ==

== ENCOUNTER → 2025-02-21 13:22 | Outpatient (BNVA) | payer MEDICARE, SELFPAY | PROVIDERS: PCP Family Medicine; Referring Provider Family Medicine; Visit Provider Physician Assistant | DX: G56.03 Carpal tunnel syndrome, bilateral upper limbs (principal); G56.23 Lesion of ulnar nerve, bilateral upper limbs; G20.C Parkinsonism, unspecified; E11.42 Type 2 diabetes mellitus with diabetic polyneuropathy | CPT/HCPCS: 99213 ==

== ENCOUNTER 2025-03-14 11:27 | Outpatient (CLI) | payer MEDICARE, SELFPAY ==
--- NOTE | 2025-03-14 09:45 | DI.RAD_ITS ---
Exam(s) XR HIP LT AP LAT ONLY EXAM: XR HIP LT AP LAT ONLY CLINICAL HISTORY: eval acute on chronic L hip pain. TECHNIQUE: 2D digital imaging was performed. Two images were obtained. AP and lateral views were obtained. COMPARISON: CR XR PELVIS AP from 12/20/2024 FINDINGS: BONES: There are stable post operative changes of a left total hip arthroplasty present. No fracture or dislocation. JOINTS: The orthopedic hardware is in good position. No evidence of hardware loosening. SOFT TISSUE: Atherosclerotic calcifications are present. IMPRESSION: Stable left total hip arthroplasty. DATA REPOSITORY: RADIATION DOSE DELIVERED:
== END 2025-03-14 11:28 | disposition home or self-care (01) ==
LOC: DIORS 11:28
PROVIDERS: PCP Family Medicine; Referring Provider Family Medicine; Visit Provider Student in an Organized Health Care Education/Training Program
DX: G56.03 Carpal tunnel syndrome, bilateral upper limbs (principal); M70.62 Trochanteric bursitis, left hip; M25.552 Pain in left hip; W19.XXXA Unspecified fall, initial encounter; Z96.642 Presence of left artificial hip joint; M16.11 Unilateral primary osteoarthritis, right hip; G20.C Parkinsonism, unspecified; E11.9 Type 2 diabetes mellitus without complications
CPT/HCPCS: 99214; 73502

== ENCOUNTER → 2025-03-22 09:05 | Outpatient (BNVA) | payer MEDICARE, SELFPAY | PROVIDERS: PCP Family Medicine; Referring Provider Family Medicine; Visit Provider Internal Medicine Pulmonary Disease | DX: J44.9 Chronic obstructive pulmonary disease, unspecified (principal); J47.9 Bronchiectasis, uncomplicated; J45.50 Severe persistent asthma, uncomplicated; Z87.891 Personal history of nicotine dependence; I26.99 Other pulmonary embolism without acute cor pulmonale; G20.A1 Parkinson's disease without dyskinesia, without mention of fluctuations | CPT/HCPCS: 99214; G0296 ==

== ENCOUNTER 2025-03-23 06:08 | Day surgery (SDC) | payer MEDICARE, SELFPAY ==
[2025-03-23 06:27] VITALS: BP 150/74; PULSE 83; RESP 20; TEMP 36.7; O2SAT 97
[2025-03-23] MEDS: Cephalexin 500 MG CAP 1000 MG PO (07:02)
--- NOTE | 2025-03-23 07:08 | PDOC.DSDIS_ITS ---
Date of service: 03/23/25 Discharge Plan Disposition Patient Disposition: Home Condition: Good Discharge Details Reason For Visit: R ECTR Attending Provider: Toan Romero Primary Care Provider: Lavonne Del Valle Home Meds and New Rx's Prescriptions: New acetaminophen 500 mg tablet 1,000 mg PO TID Qty: 90 0RF Continued albuterol sulfate 2.5 mg /3 mL (0.083 %) solution for nebulization 2.5 mg inhalation QID Qty: 180 6RF omeprazole 20 mg capsule,delayed release(DR/EC) 40 mg PO DAILY Qty: 180 3RF Dupixent Pen 300 mg/2 mL pen injector 300 mg subcut Q2W Qty: 4 11RF ferrous sulfate 325 mg (65 mg iron) tablet 325 mg PO DAILY meclizine 12.5 mg tablet 12.5 mg PO TID PRN carbidopa-levodopa 25-100 mg tablet extended release 1 tab PO TID Qty: 270 3RF Rx Instructions: Take around ~8am, noon, and 4pm aspirin 81 mg tablet,chewable 81 mg PO DAILY diclofenac sodium 1 % gel See Rx Instructions topical DIRECTED Rx Instructions: topical as directed; magnesium oxide 400 mg (241.3 mg magnesium) tablet 400 mg PO BID lisinopril 20 mg tablet 20 mg PO BID Qty: 180 3RF Trelegy Ellipta 100-62.5-25 mcg blister with device 1 inh inhalation DAILY Qty: 60 6RF atorvastatin [Lipitor] 80 mg tablet 80 mg PO DAILY Eliquis 5 mg tablet 5 mg PO BID diltiazem HCl [Cardizem CD] 240 mg capsule,extended release 24hr 240 mg PO DAILY metformin 500 mg tablet extended release 24 hr 500 mg PO DAILY sodium chloride 3 % solution for nebulization 4 ml inhalation BID PRN (Reason: secretions) Qty: 240 12RF guaifenesin [Mucinex] 600 mg tablet extended release 12hr 600 mg PO TID PRN Qty: 90 12RF ipratropium-albuterol 0.5 mg-3 mg(2.5 mg base)/3 mL solution for nebulization 3 ml inhalation QID PRN (Reason: wheezing) Qty: 180 6RF nystatin 100,000 unit/mL suspension 1 ml PO TID PRN (Reason: thrush) Qty: 473 3RF Rx Instructions: swish and swallow Discontinued acetaminophen [Acetaminophen Extra Strength] 500 mg tablet 500 mg PO ONCE Patient Comments: 1000 mg dose Discharge Instructions Additional Instructions: You will resume your apixaban starting with tonight's dose. Stand Alone Forms: Nick Tipton Tunnel Release, Tomasz Gray (DSU), Portal Information Referrals: Toan Romero MD [ [facility] STAFF PHYSICIAN, Orthopaedic Surgical] - 04/01/25 10:45 am Activity:: Activity as Tolerated Remove Dressings/Wound Care:: 48 hours Shower/Bathe:: 48 hours Diet:: As Tolerated Discharge Orders Discharge Orders: Discharge Order (Routine); Ordered 03/23/25 Ordered By: Aaron Caballero DS: Diagnosis Discharge Diagnosis (1) Carpal tunnel syndrome of right wrist: Status: Acute
[2025-03-23] MEDS: Sodium Bicarbonate 50 MEQ/50 ML VIAL (07:33)
[2025-03-23] MEDS: Lidocaine 1% Pres-Free W/EPI 1/200,000 10 ML VIAL (07:33)
[2025-03-23 07:46] VITALS: BP 141/75; PULSE 74; RESP 16; TEMP 36.6; O2SAT 96
--- NOTE | 2025-03-23 10:08 | W.PM.OP ---
Operative Note Operative Note PRE-OP DIAGNOSIS: Right Carpal Tunnel Syndrome POST-OP DIAGNOSIS: same PROCEDURE: Right Endoscopic Carpal Tunnel Release SURGEON: Toan Romero ANESTHESIA TYPE: Local By Surgeon Refer to Anesthesia Record ESTIMATED BLOOD LOSS: 0 PATHOLOGY: none sent TOURNIQUET TIME: 5 COMPLICATIONS: None Patient was transported to: same day Patient's condition: stable Indications: I have seen René in clinic for symptoms of carpal tunnel syndrome. The numbness, tingling, and pain limited function. Clinical exam findings confirmed the diagnosis of carpal tunnel syndrome. Nonoperative measures such as bracing, time, activity modifications had been tried but disability and pain persisted. I discussed carpal tunnel release with the patient. I reviewed the risks of the procedure to include, but not limited to, bleeding, infection, pain, stiffness, incomplete release, damage to nerves or vessels, persistent numbness, recurrence. Despite these risks, the patient elected to proceed. Findings: There was tightened carpal tunnel. This was dilated and released successfully with the endoscopic with increased space within the tunnel. The antebrachial fascia was released proximally freeing the median nerve at the wrist. Procedure Description: René was greeted in the preoperative holding area where the correct side was identified and marked. The consent was reviewed with the patient and signed. The history and physical was updated. All questions were answered. He was taken back to the operating room. The patient was placed into the supine position on the operating room table with the right arm on an arm board. A nonsterile tourniquet was placed high onto the arm. All bony prominences were well padded. Prophylactic antibiotics in the form of Cephalexin were administered in DSU. The right arm was then prepped with Chloraprep and draped in a standard fashion with stockinette and extremity drape. A timeout to confirm correct identity, side and site, procedure, allergies, anesthesia, and medical concerns was performed. The surgical site was marked in the volar wrist creases in line with the radial border of the fourth ray. This area was anesthetized with approximately 6cc of 1% Lidocaine. The limb was then exsanguinated with an Esmarch. The skin was incised with a 15 blade, approximately 1cm. The skin only was cut and the deeper tissue was dissected bluntly with a tenotomy scissor, avoiding passing nerve and venous structures. The fascia was penetrated and opened bluntly. A two-prong skin hook was placed under this proximal fascial edge. A series of hamate finders were used to identify and dilate the carpal tunnel. Synovial elevator was used to free synovial attachments to the underside of the transverse carpal ligament. My thumb was kept in the palm to claudio the distal extent of the carpal tunnel and correctly position the hand. The Microaire endoscope was inserted without difficulty and without resistance. Excellent visualization showed horizontally running fibers of the transverse carpal ligament (TCL). The distal extent of the TCL was visualized and the end of the scope palpated with the thumb. The blade was elevated and withdrawn from distal to proximal. The TCL was split into two flaps. The endoscope was reinserted to confirm complete release and any remnant ligament was incised. The scope was withdrawn and the proximal aspect of the carpal tunnel was grossly inspected and appeared release with the median nerve visible. The antebrachial fascia at the level of the wrist was then freed from the overlying skin and then the underlying median nerve with blunt dissection. This was transected longitudinally for about 3cm proximal to the wrist incision. The wound was then irrigated with easy flow of irrigant distally and proximally. The incision was closed with a single 4-0 Nylon suture. The wound was dressed with Xeroform, Gauze, Kerlix and Osmany. The tourniquet was deflated with the initial dressing and held with some pressure. Blood flow returned easily to all digits with capillary refill less than 2 seconds. The patient tolerated the procedure well and was returned to the Same Day Surgery area in a stable condition suffering no known complication. Date of Procedure: 03/23/25
== END 2025-03-23 08:00 | disposition home or self-care (01) ==
PROVIDERS: PCP Family Medicine; Visit Provider Student in an Organized Health Care Education/Training Program
PROC: 01N54ZZ Release Median Nerve, Percutaneous Endoscopic Approach (ICD-10-PCS; CPT 29848; principal; 2025-03-23 07:30)
DX: G56.01 Carpal tunnel syndrome, right upper limb (principal)
CPT/HCPCS: 29848; J2004

== ENCOUNTER → 2025-04-01 10:33 | Outpatient (BNVA) | payer MEDICARE, SELFPAY | PROVIDERS: PCP Family Medicine; Referring Provider Family Medicine; Visit Provider Physician Assistant | DX: M70.62 Trochanteric bursitis, left hip (principal); Z47.89 Encounter for other orthopedic aftercare; G56.01 Carpal tunnel syndrome, right upper limb | CPT/HCPCS: 20610; J1010 ==